=== PATIENT | female | born 1965 | race Caucasian/White ===

== ENCOUNTER → 2017-11-13 | Outpatient (CLI) | payer OTHER ==
[~2017-11-13] MED LIST: ALBU90OI INH; BIRTH CONTROL; CLAR250 PO; EFFEXOR 150 MG QD; HYDACE5 PO; HYDGUAL120 PO; PROM25 PO; SUMA25
[2017-11-13 16:34] LABS: Source, Urine Clean Catch
[2017-11-13 17:25] LABS: Appearance, Urine Clear (Clear); Bilirubin, Urine Neg (Neg); Blood, Urine Neg (Neg); Color, Urine Yellow (P-Yellow); Glucose Qualitative, Urine Neg (Neg); Ketones, Urine Neg (Neg); Leukocyte Esterase, Urine Neg (Neg); Nitrite, Urine Neg (Neg); Protein, Urine Neg (Neg); Urobilinogen, Urine NORM (Normal)
== END ==
LOC: OLS 16:30 → LAB SHORT 16:30
PROVIDERS: Internal Medicine
DX: R31.9 Hematuria, unspecified (principal); R39.11 Hesitancy of micturition; N18.3 Chronic kidney disease, stage 3 (moderate)
CPT/HCPCS: 81003

== ENCOUNTER → 2022-08-18 | Outpatient (CLI) | payer OTHER ==
[2022-08-22 15:09] LABS: HPV 16 Negative (Negative); HPV 18 Negative (Negative); HPV OTHER HR TYPES Negative (Negative)
== END | disposition home or self-care (01) ==
LOC: LAB SHORT 09:15
PROVIDERS: Internal Medicine
DX: Z01.419 Encounter for gynecological examination (general) (routine) without abnormal findings (principal)
CPT/HCPCS: 87624; 88175